=== PATIENT | male | born 2000 ===

== ENCOUNTER 2018-03-10 23:21 | Emergency (ER) | payer BC, OTHER ==
[~2018-03-10] VITALS: Ht 177.8 cm; Wt 71.2 kg
[2018-03-10] MEDS ORDERED: OLAN10 (23:54)
[2018-03-11] MEDS ORDERED: OLAN10 PO (03:07)
[2018-03-11] MEDS ORDERED: Keflex500 MG PO (03:08)
== END 2018-03-11 03:45 | disposition home or self-care (01) ==
LOC: ER 23:21
DX: S02.2XXA Fracture of nasal bones, initial encounter for closed fracture (principal); S01.21XA Laceration without foreign body of nose, initial encounter; S30.811A Abrasion of abdominal wall, initial encounter; F31.9 Bipolar disorder, unspecified; Z88.8 Allergy status to other drugs, medicaments and biological substances; Z79.899 Other long term (current) drug therapy; Y04.2XXA Assault by strike against or bumped into by another person, initial encounter
CPT/HCPCS: 12011; 70450; 99284-25